=== PATIENT | female | born 1995 | race Caucasian/White ===

== ENCOUNTER → 2018-03-21 09:37 | Outpatient (CLI) | payer OTHER, SELFPAY ==
[2018-03-21 10:29] LABS: Add Manual Diff / Slide Review NO; Basophils Percent Auto 0.3 % (0-2); Eosinophils Percent Auto 1.6 % (2-4); Hematocrit 37.1 % (36-46); Hemoglobin 12.4 g/dL (12.0-16.0); Lymphocytes Percent Auto 20.1 % (25-40); Mean Corpuscular HGB Conc 33.5 % (30-36); Mean Corpuscular Hemoglobin 30.1 PG (26-34); Mean Corpuscular Volume 89.9 fL (80-100); Neutrophils Absolute Auto 5100 /uL (3000-5900); Platelet Count 239 X10^3/uL (150-400); Red Blood Cell Count 4.12 X10^6/uL (4.0-5.2); Red Cell Distribution Width 12.3 % (11.6-14.8); White Blood Cell Count 7.2 X10^3/uL (4.5-11.0)
[2018-03-21 11:42] LABS: Hepatitis B Surface Antigen NEGATIVE s/c (NEGATIVE); Rubella Antibody IgG 31.2 IU/mL (>15)
[2018-03-21 11:54] LABS: HIV 1 and 2 Antibody NEGATIVE (NEGATIVE); Hep C Virus Ab w/Reflex Quant NEGATIVE s/c (NEGATIVE)
[2018-03-21 14:18] LABS: Appearance Urine UA CLEAR; Bilirubin Urine UA NEGATIVE (NEGATIVE); Color Urine UA YELLOW; Glucose Urine UA NEGATIVE (Normal); Ketones Urine UA NEGATIVE (NEGATIVE); Leukocyte Esterase Urine UA NEGATIVE (NEGATIVE); Nitrite Urine UA Negative (Negative); Occult Blood Urine UA NEGATIVE (Negative); Protein Urine UA NEGATIVE (Negative); Specific Gravity Urine UA 1.015 (1.000-1.035); Urobilinogen Urine UA 0.2 E.U./dL (0.2); pH Urine UA 6.5 (4.5-8.0)
[2018-03-23 14:15] LABS: HSV 2 IGG AB < 0.90 index (< 0.90); HSV1IGG < 0.90 index (< 0.90)
[2018-03-25 13:49] LABS: Rapid Plasma Reagin NON-REACTIVE
== END ==
PROVIDERS: Visit Provider Specialist
DX: Z34.01 Encounter for supervision of normal first pregnancy, first trimester (principal); Z3A.10 10 weeks gestation of pregnancy
CPT/HCPCS: 36415; 80055; 81003; 86695; 86696; 86703; 86787; 86803; 86850; 86900; 86901; 87086

== ENCOUNTER → 2018-05-04 15:31 | Outpatient (CLI) | payer OTHER, SELFPAY ==
[2018-05-09 12:19] LABS: AFP, Serum 30.4 ng/mL; Calc Gestational Age 16.6; Cigarette Smoker N; Donated Egg NOT GIVEN; Donor Egg Age NOT GIVEN; Estriol, Free 0.69 ng/mL; Inhibin A, Dimeric 178 pg/mL; Maternal Ethnicity CAUCASIAN; Maternal Weight 146 lbs; Number of Fetuses NOT GIVEN; Previous Pregnancy Down Syndro NOT GIVEN; hCG, MoM 1.31; hCG, Serum 40.7 IU/mL
== END ==
PROVIDERS: Visit Provider Specialist
DX: Z34.02 Encounter for supervision of normal first pregnancy, second trimester (principal); Z3A.16 16 weeks gestation of pregnancy
CPT/HCPCS: 36415; 82105; 82677; 84702; 86336

== ENCOUNTER → 2018-06-01 10:53 | Outpatient (CLI) | payer OTHER, SELFPAY ==
--- NOTE | 2018-06-01 10:56 | DI.US.S_ITS ---
PROCEDURE: US OB >= 14 WEEKS FETUS INDICATIONS: 20 WEEK ANATOMIC SURVEY OUTSIDE/PRIOR DATING DATA: Last menstrual period (LMP): 01/10/18. LMP-based estimated date of delivery (TITI): 10/17/18. First dating scan (date and location): 03/30/18. Estimated date of delivery (TITI) from first dating scan: 10/18/18. TECHNIQUE: Real-time scanning was performed of the fetus, with image documentation and biometric measurements. Endovaginal scanning: No COMPARISON: [facility], , OB >= 14 WEEKS FETUS, 05/25/2018, 8:25. FINDINGS: General: A single living intrauterine gestation is present. Presentation: Vertex. Placenta: Placental position is anterior, without previa. Amniotic fluid index: 16.0 cm, normal range is 5-24 cm. heart rate: 143 beats per minute. Maternal cervical canal: 4.2 cm long. Normal lower limit is 2.5 cm. biometrics: Biparietal diameter: 20 weeks 2 days Head circumference: 20 weeks 3 days Abdominal circumference: 20 weeks 1 day Femur length: 20 weeks 1 day Estimated gestational age from initial scan: 20 weeks 1 day Composite gestational age from present scan: 20 weeks 2 days Estimated weight and percentile: 336 g; 46 percentile Measurement variability for biometric dating: +/- 7 days from 14 weeks to 15 weeks 6 days gestation, +/- 10 days from 16 weeks to 21 weeks 6 days gestation, +/- 2 weeks from 22 weeks to 27 weeks 6 days gestation, +/- 3 weeks for 28 weeks gestation or later. weight reference: 4500 g or EFW >90/95% is considered macrosomia or large for gestational age. EFW <10% is small for gestational age. EFW 5% or less is considered intra-uterine growth restriction. Anatomic survey: Neuro: Ventricles are non-dilated at less than 10 mm. Cisterna magna is normal at 3-11 mm. Cerebellum is normal in size and morphology. Nuchal skin fold: Normal at less than 6 mm between 14-21 weeks gestational age. Face: Nose and lips, facial profile are normal. Spine: No evidence for spina bifida. Heart: 4-chambered heart is present, with normal ventricular outflow tracts. Diaphragm: Diaphragm is intact. Stomach: Left-sided stomach is present. Kidneys: No hydronephrosis. Normal is less than 5 mm in 2nd trimester, less than 7 mm in 3rd trimester. Cord: 3-vessel cord has orthotopic insertion. Bladder: Normal in size. Extremities: All 4 extremities identified. IMPRESSION: 1. Single living IUP redemonstrated and interval growth is normal. 2. Normal anatomic survey. Dictated by: Aguilar JONES Interpreted: Hiram Martinez MD on 06/01/2018 at 12:32 Approved by: Hiram Martinez M.D. on 06/01/2018 at 14:29
== END ==
PROVIDERS: Visit Provider Specialist
DX: Z36.89 Encounter for other specified antenatal screening (principal); Z3A.20 20 weeks gestation of pregnancy
CPT/HCPCS: 76811

== ENCOUNTER → 2018-06-30 11:19 | Outpatient (CLI) | payer OTHER, SELFPAY ==
[2018-06-30 14:16] LABS: Hemoglobin 11.9 g/dL (12.0-16.0)
[2018-06-30 15:06] LABS: GTT (PREG) 1 Hour PP 50gm Dose 116 mg/dL (76-139)
== END ==
PROVIDERS: Visit Provider Obstetrics & Gynecology
DX: Z34.02 Encounter for supervision of normal first pregnancy, second trimester (principal)
CPT/HCPCS: 82950; 85014; 85018

== ENCOUNTER → 2018-09-21 10:36 | Outpatient (CLI) | payer OTHER, SELFPAY ==
[2018-09-22 08:09] LABS: Strep Grp B PCR POS for Grp B Strep
== END ==
PROVIDERS: Visit Provider Specialist
DX: Z34.93 Encounter for supervision of normal pregnancy, unspecified, third trimester (principal); Z3A.36 36 weeks gestation of pregnancy
CPT/HCPCS: 87653

== ENCOUNTER 2018-10-16 12:57 | Inpatient (IN) | payer OTHER, SELFPAY ==
[2018-10-16] MEDS: PENICILLIN G POTASSIUM 5,000,000 UNIT in DEXTROSE 5% IN WATER 250 ML IV (14:00)
[2018-10-16] MEDS: LACTATED RINGERS 1,000 ML 100 ML IV (14:00)
[2018-10-16 14:10] LABS: Add Manual Diff / Slide Review NO; Basophils Absolute Auto 0 /uL (0-100); Basophils Percent Auto 0.2 % (0-2); Eosinophils Absolute Auto 0 /uL (0-450); Eosinophils Percent Auto 0.3 % (2-4); Hematocrit 36.6 % (36-46); Hemoglobin 12.3 g/dL (12.0-16.0); Lymphocytes Absolute Auto 2100 /uL (1100-4500); Lymphocytes Percent Auto 14.6 % (25-40); Mean Corpuscular HGB Conc 33.6 % (30-36); Mean Corpuscular Hemoglobin 30.6 PG (26-34); Mean Corpuscular Volume 90.9 fL (80-100); Monocytes Absolute Auto 800 /uL (0-900); Monocytes Percent Auto 5.5 % (3-14); Neutrophils Absolute Auto 11400 /uL (1500-7000); Neutrophils Percent Auto 79.4 % (50-75); Platelet Count 255 X10^3/uL (150-400); Red Blood Cell Count 4.03 X10^6/uL (4.0-5.2); Red Cell Distribution Width 12.8 % (11.6-14.8); White Blood Cell Count 14.3 X10^3/uL (4.5-11.0)
--- NOTE | 2018-10-16 14:57 | PM.OBHP.1 ---
OB HPI Date/Time Date of admission: 10/16/18 Date Patient Seen: 10/16/18 Time Patient Seen: 14:57 History of Present Condition Chief complaint: Observation : 1 Para: 0 Estimated Date of Delivery: 10/15/18 Estimated Gestational Age (weeks): 40 Narrative: Linda Ni is a 23 year old female admitted in active labor History of Present care: good care, initiated at week # (11), number of visits (12) and pounds weight gain (35) Dating criteria: LMP confirmed by 1st trimester US Ultrasounds: normal mid trimester US Obstetrical complications: none Medical complications: none Preadmission Labs Blood type: O (+) positive -: Antibody screen: negative, GBS status: positive, HBsAG: negative, HIV: negative, HSV 1: negative, HSV 2: negative and RPR/VDLR: negative -: Chlamydia screen: not detected and Gonorrhea screen: not detected -: Rubella: immune HCAB: negative Quad screen: Normal 1 hr GTT: 116 Evaluation Evaluation Baseline heart rate: 130 Variability: Moderate (11-25) monitor accelerations: Present monitor decelerations: Absent Contraction Frequency (minutes): 3 Uterine Contraction Intensity: Moderate Category of Tracing: I Cervical dilation (cm): 6 Cervical effacement (%): 100 station: -2 Laboratory results: Laboratory Tests 10/16/18 14:00 WBC 14.3 H RBC 4.03 Hgb 12.3 Hct 36.6 MCV 90.9 MCH 30.6 MCHC 33.6 RDW 12.8 Plt Count 255 Neut % (Auto) 79.4 H Lymph % (Auto) 14.6 L [place] % (Auto) 5.5 Eos % (Auto) 0.3 L Baso % (Auto) 0.2 Neut # (Auto) 98088 H Lymph # (Auto) 2100 [place] # (Auto) 800 Eos # (Auto) 0 Baso # (Auto) 0 Meds Home Medications Medication Instructions Recorded Confirmed Type 1 tab PO DAILY 03/21/18 03/21/18 History vitamin,calcium,hqrrdqms-zuvs-vjfma acid tablet breast pump #1 each 08/03/18 08/03/18 Rx Allergies Allergy/AdvReac Type Severity Reaction Status Date / Time ibuprofen Allergy Mild Tongue Verified 03/21/18 09:39 swelling Review of Systems Review of Systems Patient denies any signs or symptoms of preeclampsia. She denies any leakage of fluid. No fevers. All systems reviewed & are unremarkable except as noted in HPI and below Exam Vital Signs (past 8 hours): Blood pressure 119/86, pulse of 89, temperature 98.3? Narrative Exam Narrative: HEENT exam within normal limits, lungs are clear to auscultation and percussion, heart is regular rate and rhythm no S3-S4 or murmurs. Abdomen is gravid. Infant is vertex. Extremities without edema and nontender where Objective Labs Result Diagrams: 10/16/18 14:00 Labs: Laboratory Results - last 24 hr 10/16/18 14:00 WBC 14.3 H RBC 4.03 Hgb 12.3 Hct 36.6 MCV 90.9 MCH 30.6 MCHC 33.6 RDW 12.8 Plt Count 255 Neut % (Auto) 79.4 H Lymph % (Auto) 14.6 L [place] % (Auto) 5.5 Eos % (Auto) 0.3 L Baso % (Auto) 0.2 Neut # (Auto) 99256 H Lymph # (Auto) 2100 [place] # (Auto) 800 Eos # (Auto) 0 Baso # (Auto) 0 Assessment and Plan (1) 40 weeks gestation of : Current visit: Yes Status: Acute Plan: Anticipate vaginal delivery. IV penicillin for positive group B strep culture.
--- NOTE | 2018-10-16 15:06 | P.HPOB_ITS ---
OB HPI Date/Time Date of admission: 10/16/18 Date Patient Seen: 10/16/18 Time Patient Seen: 14:57 History of Present Condition Chief complaint: Observation : 1 Para: 0 Estimated Date of Delivery: 10/15/18 Estimated Gestational Age (weeks): 40 Narrative: Linda Ni is a 23 year old female admitted in active labor History of Present care: good care, initiated at week # (11), number of visits (12) and pounds weight gain (35) Dating criteria: LMP confirmed by 1st trimester US Ultrasounds: normal mid trimester US Obstetrical complications: none Medical complications: none Preadmission Labs Blood type: O (+) positive -: Antibody screen: negative, GBS status: positive, HBsAG: negative, HIV: negative, HSV 1: negative, HSV 2: negative and RPR/VDLR: negative -: Chlamydia screen: not detected and Gonorrhea screen: not detected -: Rubella: immune HCAB: negative Quad screen: Normal 1 hr GTT: 116 Evaluation Evaluation Baseline heart rate: 130 Variability: Moderate (11-25) monitor accelerations: Present monitor decelerations: Absent Contraction Frequency (minutes): 3 Uterine Contraction Intensity: Moderate Category of Tracing: I Cervical dilation (cm): 6 Cervical effacement (%): 100 station: -2 Laboratory results: Laboratory Tests 10/16/18 14:00 WBC 14.3 H RBC 4.03 Hgb 12.3 Hct 36.6 MCV 90.9 MCH 30.6 MCHC 33.6 RDW 12.8 Plt Count 255 Neut % (Auto) 79.4 H Lymph % (Auto) 14.6 L [place] % (Auto) 5.5 Eos % (Auto) 0.3 L Baso % (Auto) 0.2 Neut # (Auto) 01258 H Lymph # (Auto) 2100 [place] # (Auto) 800 Eos # (Auto) 0 Baso # (Auto) 0 Meds Home Medications Medication Instructions Recorded Confirmed Type 1 tab PO DAILY 03/21/18 03/21/18 History vitamin,calcium,yoeppyuj-vmli-epxfi acid tablet breast pump #1 each 08/03/18 08/03/18 Rx Allergies Allergy/AdvReac Type Severity Reaction Status Date / Time ibuprofen Allergy Mild Tongue Verified 03/21/18 09:39 swelling Review of Systems Review of Systems Patient denies any signs or symptoms of preeclampsia. She denies any leakage of fluid. No fevers. All systems reviewed & are unremarkable except as noted in HPI and below Exam Vital Signs (past 8 hours): Blood pressure 119/86, pulse of 89, temperature 98.3? Narrative Exam Narrative: HEENT exam within normal limits, lungs are clear to auscultation and percussion, heart is regular rate and rhythm no S3-S4 or murmurs. Abdomen is gravid. Infant is vertex. Extremities without edema and nontender where Objective Labs Result Diagrams: 10/16/18 14:00 Labs: Laboratory Results - last 24 hr 10/16/18 14:00 WBC 14.3 H RBC 4.03 Hgb 12.3 Hct 36.6 MCV 90.9 MCH 30.6 MCHC 33.6 RDW 12.8 Plt Count 255 Neut % (Auto) 79.4 H Lymph % (Auto) 14.6 L [place] % (Auto) 5.5 Eos % (Auto) 0.3 L Baso % (Auto) 0.2 Neut # (Auto) 33175 H Lymph # (Auto) 2100 [place] # (Auto) 800 Eos # (Auto) 0 Baso # (Auto) 0 Assessment and Plan (1) 40 weeks gestation of : Current visit: Yes Status: Acute Plan: Anticipate vaginal delivery. IV penicillin for positive group B strep culture.
[2018-10-16 17:44] VITALS: BP 119/86
[2018-10-16] MEDS: PENICILLIN G POTASSIUM 3,000,000 UNIT/50 ML FROZ.PIGGY 100 UNIT IV (17:55)
[2018-10-16] MEDS: OXYTOCIN 10 UNIT/ML VIAL IM (19:00)
--- NOTE | 2018-10-16 19:13 | P.PCNOB_ITS ---
Delivery date: 10/16/18 Intrapartal events: None Delivery monitor: external FHT and external uterine Route of delivery: L&D Laceration Description: Vaginal - 1st Degree Delivery repair: chromic (3-0) Estimated blood loss (mL): 250 Anesthesia type: Epidural Narrative: Patient arrived on Labor and delivery in active labor. She received an epidural catheter for pain control. heart tones category 1 to category 2 throughout labor. Patient delivered spontaneously, over an intact perineum. The female was placed on the maternal abdomen. After the cord stopped pulsating the cord was clamped cut and cord bloods obtained. The placenta delivered spontaneously, intact, with 3 vessels. She had no cervical or perineal tears. She had a first-degree vaginal tear that was repaired with 3 0 chromic suture. Estimated blood loss was 350 cc. Both infant and mother doing well. [place] Baby 1: Infant gender: Female Presentation: vertex position: Right Occiput Anterior Placenta delivery description: Spontaneous cord vessel description: 3 Vessels score (1 min): 8 score (5 min): 9 Plan for aftercare: Routine care
[2018-10-17 05:56] LABS: Add Manual Diff / Slide Review NO; Basophils Absolute Auto 100 /uL (0-100); Basophils Percent Auto 0.5 % (0-2); Eosinophils Absolute Auto 100 /uL (0-450); Eosinophils Percent Auto 0.4 % (2-4); Hematocrit 34.4 % (36-46); Hemoglobin 11.6 g/dL (12.0-16.0); Lymphocytes Absolute Auto 2000 /uL (1100-4500); Lymphocytes Percent Auto 12.7 % (25-40); Mean Corpuscular HGB Conc 33.8 % (30-36); Mean Corpuscular Hemoglobin 30.6 PG (26-34); Mean Corpuscular Volume 90.3 fL (80-100); Monocytes Absolute Auto 1200 /uL (0-900); Monocytes Percent Auto 7.9 % (3-14); Neutrophils Absolute Auto 12300 /uL (1500-7000); Neutrophils Percent Auto 78.5 % (50-75); Platelet Count 221 X10^3/uL (150-400); Red Blood Cell Count 3.81 X10^6/uL (4.0-5.2); Red Cell Distribution Width 13.2 % (11.6-14.8); White Blood Cell Count 15.7 X10^3/uL (4.5-11.0)
--- NOTE | 2018-10-17 14:52 | PM.OBPN.1 ---
Subjective - OB Interval history: post day #1 Patient comments: no complaints [place] baby status: doing well feeding status: exclusively breast feeding Narrative: Patient is doing well. No S/S preeclampsia. Pain is doing well. Still some issues with breast feeding. Date Patient Seen: 10/17/18 Time Patient Seen: 14:53 Exam Vital Signs (past 8 hours): blood pressure 127/79, pulse of 95, temperature 98.7? Narrative Exam Narrative: Abdomen is soft nontender. Uterus is firm, at U, nontender. Mild lochia. Extremities without edema and nontender. Objective Labs Result Diagrams: 10/17/18 05:40 Labs: Laboratory Results - last 24 hr 10/16/18 10/17/18 14:00 05:40 WBC 15.7 H RBC 3.81 L Hgb 11.6 L Hct 34.4 L MCV 90.3 MCH 30.6 MCHC 33.8 RDW 13.2 Plt Count 221 Neut % (Auto) 78.5 H Lymph % (Auto) 12.7 L [place] % (Auto) 7.9 Eos % (Auto) 0.4 L Baso % (Auto) 0.5 Neut # (Auto) 84853 H Lymph # (Auto) 2000 [place] # (Auto) 1200 H Eos # (Auto) 100 Baso # (Auto) 100 Blood Type O Positive Antibody Screen Negative Assessment & Plan (1) 40 weeks gestation of : Status: Acute Current Visit: Yes (2) Vaginal delivery: Problem details: Normal vaginal delivery. Routine care. Likely home in a.m.. Status: Acute Current Visit: Yes Time Spent With Patient Total time spent is greater than 50% in coordination of care (as documented) at patient's floor/unit and/or counseling patient: less than 15 minutes
--- NOTE | 2018-10-17 14:57 | P.PNOB_ITS ---
Subjective - OB Interval history: post day #1 Patient comments: no complaints [place] baby status: doing well feeding status: exclusively breast feeding Narrative: Patient is doing well. No S/S preeclampsia. Pain is doing well. Still some issues with breast feeding. Date Patient Seen: 10/17/18 Time Patient Seen: 14:53 Exam Vital Signs (past 8 hours): blood pressure 127/79, pulse of 95, temperature 98.7? Narrative Exam Narrative: Abdomen is soft nontender. Uterus is firm, at U, nontender. Mild lochia. Extremities without edema and nontender. Objective Labs Result Diagrams: 10/17/18 05:40 Labs: Laboratory Results - last 24 hr 10/16/18 10/17/18 14:00 05:40 WBC 15.7 H RBC 3.81 L Hgb 11.6 L Hct 34.4 L MCV 90.3 MCH 30.6 MCHC 33.8 RDW 13.2 Plt Count 221 Neut % (Auto) 78.5 H Lymph % (Auto) 12.7 L [place] % (Auto) 7.9 Eos % (Auto) 0.4 L Baso % (Auto) 0.5 Neut # (Auto) 78828 H Lymph # (Auto) 2000 [place] # (Auto) 1200 H Eos # (Auto) 100 Baso # (Auto) 100 Blood Type O Positive Antibody Screen Negative Assessment & Plan (1) 40 weeks gestation of : Status: Acute Current Visit: Yes (2) Vaginal delivery: Problem details: Normal vaginal delivery. Routine care. Likely home in a.m.. Status: Acute Current Visit: Yes Time Spent With Patient Total time spent is greater than 50% in coordination of care (as documented) at patient's floor/unit and/or counseling patient: less than 15 minutes
[2018-10-18] MEDS: DERMOPLAST SPRAY 20% 60 ML 1 SPRAY TOP (08:15)
--- NOTE | 2018-10-18 08:48 | P.DS_ITS ---
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 She received an epidural catheter for pain control. She had a vaginal delivery with a first-degree tear that was repaired. Both she and the baby are doing well. She is breast-feeding without difficulty. She denies any signs or symptoms of preeclampsia. Blood pressure 118/83, pulse of 80, temperature 98.4? Abdomen is soft, nontender. Uterus is firm, at U, nontender. Mild lochia. Extremities without edema and nontender. Patient's blood type is O positive and she is rubella immune Peripartum Data Delivery Method: Natural Vaginal Laceration description: Vaginal - 1st Degree Procedures: Epidural catheter, vaginal delivery, repair of first-degree tear complications: none [place] 1: Gender: Female Disposition of : home Discharge Diagnosis (1) Vaginal delivery: Status: Acute Problem Details: Normal vaginal delivery. Routine care. Likely home in a.m.. (2) 40 weeks gestation of : Status: Acute Status at Discharge Functional status at discharge: independent ambulation Overall status at discharge: patient is progressing back to baseline Time Spent with Patient Total time spent providing and/or coordinating discharge services: Less than 30 minutes Objective Labs Result Diagrams: 10/17/18 05:40 Discharge Plan Discharge Plan Patient Disposition: Home Discharge Med Rec/Prescriptions Prescriptions: Continued prenat.vits,errol,kaa-ewva-cqpqo [ Vitamin] tablet 1 tab PO DAILY RF: 0 breast pump [Pump In Style Advanced] device .ROUTE .MEDSUPPLY Qty: 1 RF: 0 Follow up/Referrals: Nighat Álvarez MD [Physician] - 1 Month (Followup with Dr. Álvarez on November 16 2018 at 10:15 AM.) Provider Discharge Instructions Diet: Regular Activity: Nothing in vagina for 4 weeks Skin/Wound/Dressing Care Report to your healthcare provider any signs of infection, such as:: chills, fever and increased pain Visit Report/Discharge Packet Stand Alone Forms: Discharge: Care Discharge Data Attending Provider: Nighat Álvarez Admit Date/Time: 10/16/18 12:57
[2018-10-18 09:03] VITALS: BP 119/85; PULSE 88; RESP 16; TEMP 36.7
== END 2018-10-18 11:25 | disposition home or self-care (01) | DRG 807 ==
PROVIDERS: Admitting Provider Specialist; Visit Provider Specialist
DX: O99.824 Streptococcus B carrier state complicating childbirth (principal); Z37.0 Single live birth; Z3A.40 40 weeks gestation of pregnancy
CPT/HCPCS: 01967; 36415; 59050; 59400; 85025; 86850; 86900; 86901; G0379; J2540; J2590